=== PATIENT | male | born 1960 | race Caucasian/White ===

== ENCOUNTER 2018-05-13 20:33 | Emergency (ER) | payer OTHER ==
[~2018-05-13] VITALS: Ht 172.7 cm; Wt 72.6 kg
[2018-05-13 20:40] VITALS: BP_SYST 111
[2018-05-13] MEDS ORDERED: LIDOCAINE 1%, 20 ML MDV 20 ML ONE ×2 (21:40→21:41)
[2018-05-13] MEDS ORDERED: LIDOCAINE 1% 10 MG/ML, 20 ML MDV INJ ONE (21:45)
[2018-05-13] MEDS ORDERED: DIPH-TET-PERTUS Vaccine 0.5 ML VIAL (ADACEL) I.M. ONE (23:00)
[2018-05-13] MEDS ORDERED: ceFAZolin SODIUM 1 GM VIAL IM ONE (23:00)
[2018-05-13 23:19] VITALS: BP_SYST 118
[2018-05-13] MEDS ORDERED: BACITRACIN 1 GM OINT TP ONE ×2 (23:27→23:30)
== END 2018-05-13 23:32 | disposition home or self-care (01) ==
LOC: SED 20:33
DX: S81.811A Laceration without foreign body, right lower leg, initial encounter (principal); X58.XXXA Exposure to other specified factors, initial encounter; Y93.11 Activity, swimming; Y92.34 Swimming pool (public) as the place of occurrence of the external cause; Y99.8 Other external cause status
CPT/HCPCS: 12005; 90471; 90715; 96372; 99284; J0690; J2001

== ENCOUNTER 2018-05-15 12:36 | Emergency (ER) | payer OTHER ==
[~2018-05-15] VITALS: Ht 172.7 cm; Wt 72.6 kg
[2018-05-15 12:36] VITALS: BP_SYST 195
[2018-05-15] MEDS ORDERED: BACITRACIN 1 GM OINT TP ONE ×2 (12:58→13:00)
[2018-05-15 13:05] VITALS: BP_SYST 147
== END 2018-05-15 13:05 | disposition home or self-care (01) ==
LOC: SED 12:36
DX: M79.661 Pain in right lower leg (principal); I10 Essential (primary) hypertension; M06.9 Rheumatoid arthritis, unspecified; F17.200 Nicotine dependence, unspecified, uncomplicated
CPT/HCPCS: 99283